=== PATIENT | female | born 1985 | race Caucasian/White ===

== ENCOUNTER 2019-12-02 00:43 | Inpatient (IN) | payer OTHER ==
[2019-12-02] MEDS ORDERED: Fentanyl 4 mcg/Bup 0.1% Cadd 100 ML ONE (01:16)
[2019-12-02 01:21] VITALS: BMI 28.0
[2019-12-02 01:23] LABS: Hemoglobin 13.9 g/dL (12.0-16.0); Mean Corpuscular HGB CONC 34.6 g/dL (32.0-36.0); Mean Corpuscular Hemoglobin 32.1 pg (27.0-31.0); Mean Corpuscular Volume 92.9 fL (78.0-98.0); Mean Platelet Volume 9.5 fL (7.4-10.4); Platelet Count 196 thou/uL (130-400); RBC Distribution Width 11.3 % (11.5-14.5); Red Blood Cell (RBC) Count 4.32 mill/uL (4.20-5.40); White Blood Cell (WBC) Count 13.4 thou/uL (4.8-10.8)
[2019-12-02] MEDS ORDERED: NS / Oxytocin 40 units/1000ml 0 ML ONE (01:28)
[2019-12-02] MEDS ORDERED: Lidocaine 1% (PF) 30 ML VIAL ONE (01:28)
[2019-12-02] MEDS ORDERED: Oxytocin 10 UNITS/ML VIAL ONE (01:31)
[2019-12-02] MEDS ORDERED: Benzocaine-Menthol 82.5 ML CAN TOP PRN ×2 (01:56→02:23)
--- NOTE | 2019-12-02 01:58 | PDOC.LDHP ---
Labor and Delivery H&P Chief complaint: scheduled section HPI: 34 y/o at 39 and 6/7 weeks presents in labor. Current gestational age (weeks): 39 Due date: 12/03/19 Grav: 3 Para: 1 Current complications: none Abnormal US findings: No Current medications: pre-angel vitamins Previous surgical history: none Allergies/Adverse Reactions: Allergies Allergy/AdvReac Type Severity Reaction Status Date / Time No Known Allergies Allergy Verified 12/02/19 01:11 Social history: none - Physical Exam Vital signs reviewed and normal: yes General: NAD, resting Heart: RRR Lungs: CTAB Abdomen: NTTP Extremeties: no edema FHT: category 1 - Assessment L&D Assessment: term patient in labor - Plan Plan: admit to L&D
[2019-12-02 02:01] LABS: HBSAg Index 0.16 S/CO (0-0.99); Hep B Surf Ag Non-Reactive S/CO (NonReactive)
--- NOTE | 2019-12-02 02:17 | OP ---
DATE OF PROCEDURE: 12/02/2019 I was called to [facility] for a precipitous delivery. The patient of Dr. Toledo who presented with spontaneous rupture of membranes around midnight, presented to Labor and Delivery Unit, was noted to be anterior lip approximately 10 minutes prior, then did not have an epidural, had an uncontrolled need to push. I presented to the delivery room and put on protective garments. By that point in time, the patient was . The was delivered at 0139 in a controlled manner over an intact perineum. It was placed on maternal abdomen, was noted to be a male infant. and weight are pending. Delayed cord clamping was carried out, and the patient was administered intramuscular Pitocin. The placenta delivered spontaneously approximately 3 minutes later. Inspection of the perineum revealed no significant lacerations. QBL was probably not being to be able to be done secondary to the precipitous nature of delivery. The patient tolerated the procedure well, was entered into routine care. Job ID: [id number]
[2019-12-02] MEDS ORDERED: Preparation H Ointment 28 GM TUBE PR PRN (02:23)
[2019-12-02] MEDS ORDERED: Promethazine HCl 25 MG/ML VIAL IM PRN (02:23)
[2019-12-02] MEDS ORDERED: Bisacodyl 10 MG SUPP PR PRN (02:23)
[2019-12-02] MEDS ORDERED: hydrALAZINE 20 MG/ML VIAL SLOW IVP PRN (02:23)
[2019-12-02] MEDS ORDERED: Milk Of Magnesia 30 ML UDCUP PO PRN (02:23)
[2019-12-02] MEDS ORDERED: Zolpidem Tartrate 5 MG TAB PO PRN (02:23)
[2019-12-02] MEDS ORDERED: Lanolin Ointment 7 GM TUBE TOP PRN (02:23)
[2019-12-02] MEDS ORDERED: HYDROcodone/Acetaminophen 5/325 mg Tablet PO PRN ×2 (02:23)
[2019-12-02] MEDS ORDERED: diphenhydrAMINE 25 MG CAP PO PRN (02:23)
[2019-12-02] MEDS ORDERED: Ondansetron PF 4 MG/2 ML Vial IVP PRN (02:23)
[2019-12-02] MEDS ORDERED: NS / Oxytocin 40 units/1000ml 1,000 ML IV SCH (02:23)
[2019-12-02] MEDS: Ibuprofen 800 MG TAB PO SCH ×3 (05:16→21:12)
[2019-12-02 05:43] LABS: Syphilis Antibody Nonreactive (Nonreactive); Syphilis Antibody Index 0.03 S/CO (<1.00 Non-Reactive)
[2019-12-02] MEDS: Ferrous Sulfate 325 MG TAB PO SCH ×2 (07:26→18:21)
[2019-12-02] MEDS: Prenatal Vitamin 1 TAB PO SCH (08:56)
[2019-12-02] MEDS: Docusate Calcium (SURFAK) 240 MG CAP PO SCH ×2 (08:56→21:12)
[2019-12-02] MEDS ORDERED: Adacel (T-DAP) 0.5 ML SYRINGE IM ONE (09:00)
[2019-12-03] MEDS: Ibuprofen 800 MG TAB PO SCH (06:31)
[2019-12-03] MEDS: Ferrous Sulfate 325 MG TAB PO SCH (09:26)
[2019-12-03] MEDS: Docusate Calcium (SURFAK) 240 MG CAP PO SCH (09:45)
[2019-12-03] MEDS: Prenatal Vitamin 1 TAB PO SCH (09:45)
[2019-12-03 10:52] VITALS: BP 122/72; TEMP 97.9
--- NOTE | 2019-12-03 11:47 | PDOC.PP ---
Post Progress Note Post Day #: 1 PO intake tolerated: yes Flatus: yes Ambulation: yes Vital Signs (12 hours) Temp Pulse Resp BP BP Pulse Ox 12/03/19 08:30 97.9 F 53 L 16 122/72 96 12/03/19 00:37 98.5 F 57 L 16 106/50 L Weight Weight 179 lb - Physical Examination General: NAD Cardiovascular: no m/r/g, RRR Respiratory: clear to auscultation bilaterally Abdominal: + bowel sounds, lochia, no distention Extremities: negative homans (B) Neurological: no gross focal deficits Psychiatric: A&Ox3, normal affect Result Diagrams: 12/02/19 01:15 Additional Labs: Post Labs Blood Type O POSITIVE 12/02/19 01:52 Hep Bs Antigen Non-Reactive S/CO (NonReactive) 12/02/19 01:15
== END 2019-12-03 12:40 | disposition home or self-care (01) | DRG 807 ==
LOC: L&D/OP 00:43 → L&D 01:12 → 3SW 03:56
PROVIDERS: ADMIT Obstetrics & Gynecology; ATTEND Obstetrics & Gynecology
PROC: 10E0XZZ Delivery of Products of Conception, External Approach (ICD-10-PCS; principal; 2019-12-02)
DX: O62.3 Precipitate labor (principal); Z37.0 Single live birth; Z3A.39 39 weeks gestation of pregnancy
CPT/HCPCS: 36415; 85027; 86780; 86850; 86900; 86901; 87340; 99285; J2001; J2590